=== PATIENT | male | born 1955 | race Hispanic/Latino ===

== ENCOUNTER 2022-04-26 13:25 | Outpatient (CLI) | payer SELFPAY | END 2022-04-26 13:26 | disposition home or self-care (01) | LOC: CSHWCC 13:25 | PROVIDERS: ATTEND Preventive Medicine Undersea and Hyperbaric Medicine | DX: L97.429 Non-pressure chronic ulcer of left heel and midfoot with unspecified severity (principal); L97.129 Non-pressure chronic ulcer of left thigh with unspecified severity; R60.0 Localized edema | CPT/HCPCS: 11042; 97607 ==

== ENCOUNTER 2022-05-03 15:06 | Outpatient (CLI) | payer SELFPAY | END 2022-05-03 15:07 | disposition home or self-care (01) | LOC: CSHWCC 15:06 | PROVIDERS: ATTEND Preventive Medicine Undersea and Hyperbaric Medicine | DX: L97.429 Non-pressure chronic ulcer of left heel and midfoot with unspecified severity (principal); L97.129 Non-pressure chronic ulcer of left thigh with unspecified severity; R60.0 Localized edema | CPT/HCPCS: 11042; 11045; 97607 ==

== ENCOUNTER 2022-05-17 10:41 | Outpatient (CLI) | payer SELFPAY | END 2022-05-17 10:42 | disposition home or self-care (01) | LOC: CSHWCC 10:41 | PROVIDERS: ATTEND Nurse Practitioner Family | DX: L97.429 Non-pressure chronic ulcer of left heel and midfoot with unspecified severity (principal); R60.0 Localized edema | CPT/HCPCS: 11042; 97607; 99212; G0463 ==

== ENCOUNTER 2022-06-03 10:14 | Outpatient (CLI) | payer SELFPAY | END 2022-06-03 10:15 | disposition home or self-care (01) | LOC: CSHWCC 10:14 | PROVIDERS: ATTEND Nurse Practitioner Family | DX: L97.429 Non-pressure chronic ulcer of left heel and midfoot with unspecified severity (principal); R60.0 Localized edema | CPT/HCPCS: 11042; 87070; 87205; 99212; G0463 ==

== ENCOUNTER 2022-06-08 10:50 | Outpatient (CLI) | payer SELFPAY | END 2022-06-08 10:51 | disposition home or self-care (01) | LOC: CSHWCC 10:50 | PROVIDERS: ATTEND Nurse Practitioner Family | DX: L97.429 Non-pressure chronic ulcer of left heel and midfoot with unspecified severity (principal); R60.0 Localized edema | CPT/HCPCS: 29445 ==

== ENCOUNTER 2022-06-16 13:01 | Outpatient (CLI) | payer SELFPAY | END 2022-06-16 13:02 | disposition home or self-care (01) | LOC: CSHWCC 13:01 | PROVIDERS: ATTEND Nurse Practitioner Family | DX: L97.429 Non-pressure chronic ulcer of left heel and midfoot with unspecified severity (principal); R60.0 Localized edema ==

== ENCOUNTER 2022-06-28 13:06 | Outpatient (CLI) | payer SELFPAY | END 2022-06-28 13:07 | disposition home or self-care (01) | LOC: CSHWCC 13:06 | PROVIDERS: ATTEND Nurse Practitioner Family | DX: L97.429 Non-pressure chronic ulcer of left heel and midfoot with unspecified severity (principal); R60.0 Localized edema | CPT/HCPCS: 29445 ==

== ENCOUNTER 2022-07-05 15:04 | Outpatient (CLI) | payer SELFPAY | END 2022-07-05 15:05 | disposition home or self-care (01) | LOC: CSHWCC 15:04 | PROVIDERS: ATTEND Nurse Practitioner Family | DX: L97.429 Non-pressure chronic ulcer of left heel and midfoot with unspecified severity (principal) | CPT/HCPCS: 99212; G0463 ==

== ENCOUNTER 2022-07-20 11:38 | Outpatient (CLI) | payer SELFPAY | END 2022-07-20 11:39 | disposition home or self-care (01) | LOC: CSHWCC 11:38 | PROVIDERS: ATTEND Nurse Practitioner Family | DX: R60.0 Localized edema (principal) | CPT/HCPCS: 99213; G0463 ==